=== PATIENT | female | born 1990 | race Two or more races ===

== ENCOUNTER 2020-01-17 13:12 | Emergency (ER) | payer MEDICAID ==
[~2020-01-17] VITALS: Ht 172.7 cm; Wt 126.6 kg
[2020-01-17 14:06] LABS: Urine Bacteria FEW /hpf (None Seen); Urine Blood 3+ /uL (Negative); Urine Specific Gravity 1.023 (1.001-1.035); Urine WBC 13 /hpf (0 - 5)
[2020-01-17 17:40] VITALS: BP 124/76
== END 2020-01-17 17:53 | disposition home or self-care (01) ==
LOC: ER 13:12
DX: O20.0 Threatened abortion (principal); Z3A.01 Less than 8 weeks gestation of pregnancy
CPT/HCPCS: 36415; 76801; 76817; 81001; 84702

== ENCOUNTER 2023-10-08 08:52 | Emergency (ER) | payer MEDICAID ==
[~2023-10-08] VITALS: Ht 172.7 cm; Wt 134.0 kg
[2023-10-08 09:32] VITALS: BP 132/72; PULSE 88; RESP 18; TEMP 97.7; O2SAT 97
[2023-10-08] MEDS ORDERED: IBUP-1455 PO (10:21)
== END 2023-10-08 10:23 | disposition home or self-care (01) ==
LOC: ER 08:52
DX: S63.601A Unspecified sprain of right thumb, initial encounter (principal); S60.212A Contusion of left wrist, initial encounter; J02.9 Acute pharyngitis, unspecified; W01.0XXA Fall on same level from slipping, tripping and stumbling without subsequent striking against object, initial encounter; Y93.89 Activity, other specified; Y92.89 Other specified places as the place of occurrence of the external cause; Y99.8 Other external cause status
CPT/HCPCS: 73110; 73130